=== PATIENT | male | born 1985 | race Caucasian/White ===

== ENCOUNTER 2019-03-21 08:43 | Outpatient (CLI) | payer OTHER ==
--- NOTE | 2019-03-21 09:39 | ULT ---
GALLBLADDER ULTRASOUND: INDICATIONS: Pain in the right upper abdomen. FINDINGS: No acute gallbladder pathology or focal hepatic lesion. The common duct is normal in caliber. Posi tive Delcid sign is not reported by the newspaper columnist. No ascites. IMPRESSION: No acute abnormality of the right upper quadrant. POS: [facility]
== END 2019-03-21 08:44 | disposition home or self-care (01) ==
LOC: BICULT 08:43 → ULT 08:44
PROVIDERS: ATTEND Family Medicine
DX: R10.11 Right upper quadrant pain (principal)
CPT/HCPCS: 76705